=== PATIENT | male | born 1975 | race Caucasian/White ===

== ENCOUNTER 2017-05-23 11:23 | Emergency (ER) | payer OTHER ==
[~2017-05-23] VITALS: Ht 185.4 cm; Wt 90.7 kg
[2017-05-23 11:39] VITALS: BP 129/80
--- NOTE | 2017-05-23 12:34 | NUR ---
Patient to bed 06.
--- NOTE | 2017-05-23 12:51 | NUR ---
PT PRESENTS TO ER W/C/O LEFT CALF PAIN X1 WEEK. PT STATES PAIN IS WORSE WHEN HE IS DRIVING LONG DISTANCE. FAMILY HX DVT. DENIES N/V/D; SKIN IS PINK/WARM/DRY; AAOX4 WITH EVEN AND STEADY GAIT; LUNGS CLEAR BL; HR EVEN AND REGULAR; PT DENIES ANY FEVER, CP, SOB, OR COUGH AT THIS TIME; PATIENT STATES PAIN OF 4/10 AT THIS TIME; VSS; PATIENT POSITIONED FOR COMFORT; HOB ELEVATED; BEDRAILS UP X2; BED DOWN. ER MD MADE AWARE OF PT STATUS.
--- NOTE | 2017-05-23 12:56 | NUR ---
Dr. Gutiérrez evaluating patient at bedside.
[2017-05-23 13:52] VITALS: BP 122/76
--- NOTE | 2017-05-23 13:52 | NUR ---
Patient discharged with v/s stable. Written and verbal after care instructions given and explained. Patient verbalized understanding. Ambulatory with steady gait. All questions addressed prior to discharge. Advised to follow up with PMD.
== END 2017-05-23 13:52 | disposition home or self-care (01) ==
LOC: MED 11:23
DX: M79.662 Pain in left lower leg (principal)
CPT/HCPCS: 36415; 85379; 99283